=== PATIENT | male | born 1975 | race Caucasian/White ===

== ENCOUNTER 2018-09-09 17:54 | Emergency (ER) | payer MEDICAID ==
[2018-09-09] MEDS: IBUPROFEN 600 MG TAB PO (18:53)
== END 2018-09-09 19:52 | disposition home or self-care (01) ==
LOC: FTE 17:54
DX: S63.501A Unspecified sprain of right wrist, initial encounter (principal); X50.0XXA Overexertion from strenuous movement or load, initial encounter; Y92.89 Other specified places as the place of occurrence of the external cause
CPT/HCPCS: 29125; 73110-RT; 99283-25